=== PATIENT | male | born 1935 | race Caucasian/White ===

== ENCOUNTER 2017-10-25 16:49 | Inpatient (IN) | payer MEDICARE ==
[~2017-10-25] VITALS: Ht 170.2 cm; Wt 85.3 kg
[~2017-10-25 16:49] MED LIST: BENAZEPRIL10 M1 PO; CIPROFLOXACN500 MG PO; MULTIVITAMI3; PROSTATE HEALTH; SIMVASTATIN10 MG PO; ZOVIRAX200 MG PO
--- NOTE | 2017-10-25 17:17 | NUR ---
WHEELCHAIR TO TRIAGE AREA AND RETURNED TO WAITING ROOM DUE TO LACK OF AVAILABLE BEDS
--- NOTE | 2017-10-25 18:00 | NUR ---
WHEELCHAIR TO ER ROOM 14, TO BED, POX, MONITORS X 3
--- NOTE | 2017-10-25 18:19 | NUR ---
PT C/O SOB x"A COUPLE DAYS". PT STATES HE HAS HAD A COUGH x20 YEARS SINCE HE QUIT SMOKING. PTS EYELIDS ARE WHITE, NOT PINK. PT STATES HE IS COUGHING UP BLOOD. FAMILY TOLD HE WAS GOING TO BE ADMITTED.
--- NOTE | 2017-10-25 19:29 | NUR ---
PT IN HIGH FOWLERS, ON CARDIAC/BP/O2 MONITOR. PORT ACCESSED. PTS SKIN IS PALE, COOL, DRY. WHEEZING IN LUNGS. PT "FEELS WEAK". PT IS ALERT BUT CONFUSED. HX OF ALZHEIMERS. PT REPEATEDLY ASKING THE SAME QUESTIONS. & DAUGHTER @ BEDSIDE. MED REC COMPLETE. ABD SOFT, NONTENDER. EDEMA TO BOTH FEET. PULSE STRONG & EQUAL. PT ADVISED OF NPO STATUS.
[2017-10-25 19:35] LABS: RED BLOOD COUNT 1.22 mill/uL (4.70-6.10)
[2017-10-25 19:36] LABS: MEAN CELL VOLUME 107.4 fL CALC (80.0-100.0); MEAN CORPUSCULAR HGB 37.7 pG CALC (26.0-32.0); MEAN CORPUSCULAR HGB CONC 35.1 g/L CALC (32.0-36.0); NEUT# 0.45 thou/uL (1.82-7.42); RED CELL DISTRI WIDTH 17.1 % (11.5-15.5)
[2017-10-25 19:37] LABS: HEMOGLOBIN 4.6 g/dl (14.0-18.0)
[2017-10-25 19:38] LABS: HEMATOCRIT 13.1 % (39.0-50.0)
[2017-10-25 19:53] LABS: ALBUMIN 3.9 g/dL (3.2-5.0); ALKALINE PHOSPHATASE 72 u/l (38-126); ANION GAP 16 (6-22 (CALC)); BILIRUBIN, TOTAL 1.5 mg/dL (0.0-1.4); BUN 15 mg/dL (8-23); BUN/CREATININE RATIO 19 (12-20 (CALC)); CALCIUM 9.1 mg/dL (8.4-10.2); CARBON DIOXIDE 22 mmol/l (22-30); CHLORIDE 96 mmol/l (95-108); CREATININE 0.8 mg/dL (0.7-1.3); GFR > 60 ML/MIN (>=60 (CALC)); GFR FOR AFR.AMER. > 60 ML/MIN (>=60 (CALC)); GLUCOSE 109 mg/dL (82-115); POTASSIUM 4.9 mmol/l (3.5-5.1); SGOT/AST 16 u/l (19-48); SGPT/ALT 23 u/l (11-66); SODIUM 128 mmol/l (137-146); TOTAL PROTEIN 5.9 g/dL (6.3-8.2)
[2017-10-25 19:54] LABS: INTERNATIONAL NORMALIZED RATIO 1.1 RATIO (0.7-1.3)
[2017-10-25] MEDS ORDERED: PREVAGEN10 MG PO (20:02)
[2017-10-25] MEDS ORDERED: SAW PALMETTO450 MG PO (20:02)
[2017-10-25] MEDS ORDERED: MULTIVITAMIN ME1 TA2 (20:03)
[2017-10-25] MEDS ORDERED: BENAZEPRIL20 M1 PO ×2 (20:03→20:04)
[2017-10-25] MEDS ORDERED: ACYCLOVIR200 MG PO (20:04)
[2017-10-25] MEDS ORDERED: METOPROL TAR25 MG PO (20:04)
[2017-10-25 20:05] LABS: MYOGLOBIN 34 ng/mL (0 - 121)
[2017-10-25] MEDS ORDERED: KLOR-CON M2020 MEQ PO (20:05)
[2017-10-25] MEDS ORDERED: LASIX 20 MG TAB20 MG PO (20:06)
--- NOTE | 2017-10-25 20:34 | NUR ---
PTS WOULD LIKE TO BE CALLED WHEN PT RETURNS FROM [facility]. SHE WILL BE AT THEIR DAUGHTER, KIRSTEN DE LEON.
--- NOTE | 2017-10-25 20:36 | NUR ---
PT IS OUT THE DOOR WITH [facility] TO [facility] FOR CAT SCAN IN STABLE CONDITION.
--- NOTE | 2017-10-25 21:42 | NUR ---
PT STILL OUT OF UNIT FOR CATSCAN.
--- NOTE | 2017-10-25 22:12 | NUR ---
REPORT GIVEN TO OSMIN KATHLEEN
[2017-10-26] VITALS (22 sets, daily range): BP systolic 80–184; BP diastolic 43–106
--- NOTE | 2017-10-26 00:15 | NUR ---
RETURNED FROM [facility]. CTA NEGATIVE FOR PE
--- NOTE | 2017-10-26 00:20 | NUR ---
PATIENT ASKED TO BE ALLOWED TO WALK TO THE BR. DID WELL ENROUTE TO THE BR, HOWEVER UPON RETURN HE WAS QUITE DYSPNEIC. RESPIRATORY THERAPY CONTACTED AND DUONEB GIVEN WITH GOOD RELIEF.
--- NOTE | 2017-10-26 00:20 | NUR ---
ACCOMPANIED THIS CHECK EMBOSSER AND PATIENT TO THE ICU. PER AMISHA LI LPN MAY STAY WITH PATIENT, THEY BOTH REQUESTED.
--- NOTE | 2017-10-26 00:50 | NUR ---
POOLED PLATELET CONCENTRATE 1ST BAG INFUSING ON PUMP TO POWER PORT IN THE R SCL. TOLERATING WELL WITHOUT S/S OF TRANSFUSION REACTION. FAMILY, AND DAUGHTER AT THE BEDSIDE. PATIENT IN MARKEDLY GOOD SPIRITS ALTHOU HE ADMITS TO BEING FATIGUED.
--- NOTE | 2017-10-26 01:30 | NUR ---
1ST BAG OF PLATELET CONCENTRATE COMPLETETED. VSS. REPORT GIVEN TO AMISHA IN THE ICU. PATIENT TRANSPORTED ON THE GURNEYWITH PORTABLE MONITOR, O2 AND \
--- NOTE | 2017-10-26 01:50 | NUR ---
82 yr old pale male admitted [id number] per stretcher from er. stood to weigh then to bed. sob with any exertion. o2 cont. coarse breath sounds bilat. vehicle monitor technician shows sinus sinus tach freq pvcs. history obtained per pt & er record. oriented to room. fall precautions & reverse isolation initiated. @ bedside.
--- NOTE | 2017-10-26 02:30 | NUR ---
#2 unit platelets began.
--- NOTE | 2017-10-26 03:33 | NUR ---
#2 unit platelets infused.
--- NOTE | 2017-10-26 03:48 | NUR ---
#1 unit prbc began.
--- NOTE | 2017-10-26 05:54 | NUR ---
#1 unit prbc infused.
--- NOTE | 2017-10-26 06:29 | NUR ---
#2 UNIT PRBC BEGAN.
--- NOTE | 2017-10-26 07:30 | NUR ---
P[T RESTING IN BED, ALERT AND ORIENTED, AT BEDSIDE, LUNGS COARSE WITH NO COUGH, DENIES SHORTNESS OF BREATH, O2 AT 2L VIA NC, 2nd UNIT PRBC'S INFUSING ORDERED PT TOLERATING WITHOUT INCIDENT, IMPLANTED PORT ACCESSED AND INTACT, DRESSING CLEAN DRY AND INTACT, SOME PEDAL EDEMA NOTED, BILATERALLY, PT ADMITS TO FEELING WEAKER THAN NORMAL, REVERSE ISOLATION REMAIN IN PLACE, AM ASSESSMENT COMPLETED, SEE INTERVENTIONS, TELE READING SR/ST WITH PAC'S AND PVC'S RATE 90-120'S, COMFORT MEASURE PROVIDED, SAFETY MEASURES REINFORCED, INSTRUCTED TO CALL FOR ANY NEEDED ASSISTANCE, WILL CONTINUE TO MONITOR.
--- NOTE | 2017-10-26 08:00 | NUR ---
OOB TO BSC WITH MIN ASSIST, GENERALIZED WEAKNESS NOTED, CALLBELL WITHIN REACH, REMAINS AT BEDSIDE
--- NOTE | 2017-10-26 08:15 | NUR ---
PT CONTINENT OF LG SOFT BROWN BM, PROVIDED OWN JOSLYN CARE, BACK TO BED, SITTING UP ON EDGE OF BED FOR AM MEAL, CALL SYED WITHIN REACH
--- NOTE | 2017-10-26 08:35 | NUR ---
2nd UNIT PRBC'S COMPLETED PT TOELRATED W/O INCIDENT,
--- NOTE | 2017-10-26 08:50 | NUR ---
3rd UNIT PRBC'S STARTED ORDERED, CALL SYED WITHIN REACH
--- NOTE | 2017-10-26 09:15 | NUR ---
PT TOLERATING TRANSFUSION W/O INCIDENT, CALL SYED WITHIN REACH, WILL CONTINUE TO MONITOR.
--- NOTE | 2017-10-26 09:45 | NUR ---
PT ASSISTED BACK TO LYING DONW IN BED, REMAINS AT BEDSIDE, OFFERS NO NEW COMPLAINTS, WILL CONTINUE TO MONITOR.
--- NOTE | 2017-10-26 11:00 | NUR ---
oob to BSC with one mod assist, tolerated activity well, continent of small amount of clear yellow urine, provided own carmel care, back to bed with same assist, tolerated activity with exertional sob, states this is not new and that it is that way at home as well, encouraged to rest PRN, will continue to monitor.
--- NOTE | 2017-10-26 11:18 | NUR ---
family members at bedside, reverse isolation remains in place.
--- NOTE | 2017-10-26 11:32 | NUR ---
PT SPEAKING ON PHONE WITH SISTER IN [facility], OFFERS NO COMPLAINTS AT THIS TIME, REPOSITIONED FOR COMFORT, CALL SYED WITHIN REACH
--- NOTE | 2017-10-26 12:11 | NUR ---
set up assist provided for afternoon meal, call nunn within reach, remains at bedside.
[2017-10-26 13:01] LABS: HEMATOCRIT 26.2 % (39.0-50.0); MEAN CELL VOLUME 95.6 fL CALC (80.0-100.0); MEAN CORPUSCULAR HGB 32.8 pG CALC (26.0-32.0); MEAN CORPUSCULAR HGB CONC 34.4 g/L CALC (32.0-36.0); RED BLOOD COUNT 2.74 mill/uL (4.70-6.10); RED CELL DISTRI WIDTH 19.9 % (11.5-15.5)
--- NOTE | 2017-10-26 13:30 | NUR ---
PT OOB TO BSC WITH 2 MOD ASSIST, TOLERATED ACTIVITY WITH MODERATE SHORTNESS OF BREATH, O2 REMAINS ON AT 2L VIA NC, FAMILY MEMBERS AT BEDSIDE, CALL SYED WITHIN REACH
[2017-10-26 13:39] LABS: ANION GAP 15 (6-22 (CALC)); BUN 15 mg/dL (8-23); BUN/CREATININE RATIO 20 (12-20 (CALC)); CALCIUM 9.1 mg/dL (8.4-10.2); CARBON DIOXIDE 22 mmol/l (22-30); CHLORIDE 97 mmol/l (95-108); CREATININE 0.7 mg/dL (0.7-1.3); GFR > 60 ML/MIN (>=60 (CALC)); GFR FOR AFR.AMER. > 60 ML/MIN (>=60 (CALC)); GLUCOSE 143 mg/dL (82-115); SODIUM 129 mmol/l (137-146)
--- NOTE | 2017-10-26 14:00 | NUR ---
Vancomycin consult Age: 82 years Weight: 85.3 kg Height: 170.18 cm Gender: Male SCR: 0.7 mg/dl Dosing weight: 73.78 kg IBW: 66.10 kg CRCL (ml/min): 77.4 Clement (hr-1): 0.069 Half-life (hrs): 10.05 Vd (liters): 59.71 (factor: 0.7 L/kg) Vancomycin 1250 mg q12 hrs to produce a predicted peak of 35 mcg/ml and a predicted trough of 17 mcg/ml based on (Population-based pharmacokinetic analysis).
--- NOTE | 2017-10-26 14:00 | NUR ---
PT RESTING IN BED, SOME SHORTNESS OF BREATH NOTED AT REST, COMFORT MEASURES PROVIDED, CALL SYED WITHIN REACH, FAMILY MEMBER AT BEDSIDE, WILL CONTINUE TO MONITOR.
--- NOTE | 2017-10-26 15:55 | NUR ---
PT RESTING BACK IN BED COMFORT MEASURES PROVIDED, SAFETY MEASURES REINFORCED, PT HAVE PERIODS OF CONFUSION, (NOT NEW PER SPOUSE), PT REORIENTED NEEDED, CALL BELLW ITHINR EACH, EASILY VISIBLE FROM NURSES STATION.
--- NOTE | 2017-10-26 16:25 | NUR ---
FAMILY SPOKE WITH REGARDING POST HOSPITAL CARE INCLUDING HOSPICE CONSULT, FAMILY AND PATIENT REQUESTING HOSPICE CONSULT AT THIS TIME,.
--- NOTE | 2017-10-26 16:29 | NUR ---
Hospice consult called to [facility]; facesheet faxed as per request
--- NOTE | 2017-10-26 18:39 | NUR ---
MEDICATED FOR COMPLAINTS OF PAIN, CALL YAHAIRA WITHIN REACH, TO LEAVE WITH CHILDREN SHORTLY, ALL FAMILY MEMBERS AWARE OF PLANNED HOSPICE MEETING TOMORROW AT 0930am HERE, CALL YAHAIRA WITHINR [facility], PT REMAINS CONFUSED
--- NOTE | 2017-10-26 19:15 | NUR ---
awake. confused. no acute resp distress. o2 cont per nc. coarse breath sounds bilat. rn cardiac rehab shows sinus tach freq pacs & pvcs. ns infusing @ 20cchr per port. voids per urinal occas incont. requires total care for all needs. fall precautions & reverse isolation conts. @ bedside.
--- NOTE | 2017-10-26 19:30 | NUR ---
eyes closed. left.
--- NOTE | 2017-10-26 21:30 | NUR ---
awake. confused. restless. pulling @ gown. morphine 2mg ivp given. repositioned.
--- NOTE | 2017-10-26 22:00 | NUR ---
eyes closed. no acute distress.
--- NOTE | 2017-10-26 23:10 | NUR ---
awake. restless. pulled gown & o2 off-replaced. repositioned.
--- NOTE | 2017-10-26 23:40 | NUR ---
has been having periods of restlessness. morphine doesn't seem to hold pt. dr collins notified. orders rec'd.
--- NOTE | 2017-10-27 02:00 | NUR ---
eyes closed. no apparent resp distress. o2 cont. ekg monitor tech shows sinus rhythm pacs pvcs.
[2017-10-27 03:54] VITALS: BP 114/57
--- NOTE | 2017-10-27 03:55 | NUR ---
awake. restless. ativan 1mg ivp given.
--- NOTE | 2017-10-27 04:10 | NUR ---
eyes closed. no distress.
[2017-10-27 06:00] VITALS: BP 76/48
--- NOTE | 2017-10-27 06:00 | NUR ---
eyes closed. no distress. hall monitor shows sinus rhythm pacs pvcs. o2 cont.
--- NOTE | 2017-10-27 07:20 | NUR ---
PT RESTING IN BED, BUT CONFUSED, CURRENTLY NOT AT BEDSIDE, LUNGS COARSE WITH MOIST [employer] SERGEANT COUGH, SHORTNESS OF BREATH WITH SLIGHTLY LABORED RESPS NOTED , O2 AT 2L VIA NC, ENCOURAGED TO REST, PT SLIGHTLY RESTLESS, COMPLAINTS OF URGE TO VOID, OOB WITH 2 MAX ASSIST TO BSC, AM ADL CARE PROVIDED WHILE ON BSC, PT TOLERATED WITHOUT INCIDENT, AFTER 5-7 MINUTES ON BSC WITH INABILITY TO VOID, LINENS CHANGED AND PT BACK TO BED WITH SAME 2 MAX ASSIST, BLADDER SCAN PERFORMED AND SHOWED 690 ML, AWARE AND 16F OVALLE PLACED USING STERILE TECHNIQUE WITH IMMEDIATE RETURN OF 500+ ML CLEAR YANDEL URINE, CATH STRAP SECURED, PT TOLERATED W/O INCIDENT, IMPLANTED PORT ACCESSED IN R CHEST WALL, DRESSING CLEAN DRY AND INTACT, WITH IVF AT PRESCRIBED RATE, SOME 1+ PEDAL EDEMA NOTED, BILATERALLY, PT ADMITS TO FEELING WEAKER THAN NORMAL, REVERSE ISOLATION REMAIN IN PLACE, AM ASSESSMENT COMPLETED, SEE INTERVENTIONS, TELE READING SR/ST WITH PAC'S AND PVC'S RATE 90-120'S, COMFORT MEASURES PROVIDED, SAFETY MEASURES REINFORCED, INSTRUCTED TO CALL FOR ANY NEEDED ASSISTANCE, WILL CONTINUE TO MONITOR.
[2017-10-27 08:00] VITALS: BP 124/76
--- NOTE | 2017-10-27 08:15 | NUR ---
AT BEDSIDE, UPDATED REGARDING PT CONDITION AND PLAN OF CARE, REMINDED PT OF O[place] (WHEN STATES HE NEEDS TO URINATE), COMFORT MEASURES PROVIDED REVERSE ISOLATION REMAIN IN PLACE, SET UP ASSIST PROVIDED FOR AM MEAL, WILL CONTINUE TO MONITOR
--- NOTE | 2017-10-27 08:53 | NUR ---
PT AND SPOUSE AGAIN REMINDED OF OVALLE CATHETER, (SPOUSE CALLED STATING PT SAYS HE NEEDS TO URINATE) REORIENTED PT AT THIS TIME (AGAIN), SPOUSE ASSISTING PT WITH MEAL, CALL SYED WITHIN REACH. WILL CONTINUE TO MONITOR.
[2017-10-27 10:00] VITALS: BP 112/63
--- NOTE | 2017-10-27 10:14 | NUR ---
INTO SEE PATIENT, PLAN OF CARE DISCUSSED.
--- NOTE | 2017-10-27 10:45 | NUR ---
HOPCE NURSE INTO SEE PT AND FAMILY, PLAN OF CARE DISCUSSED, INCLDUIGN SENDING PT TO HOSPICE HOUSE TODAY, FAMILY AND PT IN AGREEANCE, AWARE. CALL SYED WITHIN REACH
--- NOTE | 2017-10-27 11:47 | NUR ---
YUE NEELY CALLED REGARDING TRANSPORT, PLANNED ETA OF 1230 FOR PLANNED ARRIVAL AT HOSPICE HOUSE AT 1300 OR LATER, FAMILY AWARE.
[2017-10-27 12:00] VITALS: BP 116/64
--- NOTE | 2017-10-27 13:20 | NUR ---
Pt medicated for complaint of pain, PORT flushed per protocol and IVF stopped for D/C and planned transfer.
--- NOTE | 2017-10-27 13:21 | NUR ---
Pt discharged via stretcher to hospice house, all belongings sent with patient. Family at bedside at time of transfer.
== END 2017-10-27 13:21 | disposition hospice, inpatient (51) | DRG 809 ==
LOC: ED 16:49 → ED-I 23:00 → ED 10-26 00:20 → ICU 10-26 00:21
PROVIDERS: Emergency Medicine; ADMIT Internal Medicine; ATTEND Internal Medicine
PROC: 30233R1 Transfusion of Nonautologous Platelets into Peripheral Vein, Percutaneous Approach (ICD-10-PCS; principal; 2017-10-26)
PROC: 30233R1 Transfusion of Nonautologous Platelets into Peripheral Vein, Percutaneous Approach (ICD-10-PCS; 2017-10-26)
PROC: 30233N1 Transfusion of Nonautologous Red Blood Cells into Peripheral Vein, Percutaneous Approach (ICD-10-PCS; 2017-10-26)
PROC: 30233N1 Transfusion of Nonautologous Red Blood Cells into Peripheral Vein, Percutaneous Approach (ICD-10-PCS; 2017-10-26)
PROC: 30233N1 Transfusion of Nonautologous Red Blood Cells into Peripheral Vein, Percutaneous Approach (ICD-10-PCS; 2017-10-26)
DX: D61.810 Antineoplastic chemotherapy induced pancytopenia (principal); C95.90 Leukemia, unspecified not having achieved remission; R06.03 Acute respiratory distress; R04.2 Hemoptysis; C34.31 Malignant neoplasm of lower lobe, right bronchus or lung; E78.5 Hyperlipidemia, unspecified; I10 Essential (primary) hypertension; M19.90 Unspecified osteoarthritis, unspecified site; R41.3 Other amnesia; T45.1X5A Adverse effect of antineoplastic and immunosuppressive drugs, initial encounter; Z66 Do not resuscitate; Z51.5 Encounter for palliative care; Z87.891 Personal history of nicotine dependence; Z79.899 Other long term (current) drug therapy; Z85.118 Personal history of other malignant neoplasm of bronchus and lung
CPT/HCPCS: J2060; J3370; P9016; P9035